=== PATIENT | male | born 1950 | race Caucasian/White ===

== ENCOUNTER → 2023-09-01 | Outpatient (CLI) | payer MEDICARE ==
[2023-09-01 13:20] LABS: African American GFR (CKD) >90 (>60 ml/min/1.73 sqM); Blood Urea Nitrogen 21 mg/dL (9-20); Non-African American GFR(CKD) >90 (>60 ml/min/1.73 sqM)
--- NOTE | 2023-09-03 08:08 | FL ---
EXAMINATION TYPE: FL barium swallow w video DATE OF EXAM: 09/01/2023 COMPARISON: NONE HISTORY: Dysphasia pharyngeal phase TECHNIQUE: Fluoroscopy. FINDINGS: Fluoroscopic guidance was provided for the procedure performed in conjunction with the [facility] pathology department. Please see complete report forthcoming from the Speech Pathology departmen t. Various consistencies from thin liquid to solids were administered. Fluoroscopy time 1 minute 8 seconds. Number of images: 0. No aspiration or penetration was evident. No significant pooling was observed in the vallecula. There was normal propulsion of the bolus. IMPRESSION: 1. Unremarkable modified barium swallow.
== END | disposition home or self-care (01) ==
LOC: RADFLMAIN 10:25
PROVIDERS: ATTEND Otolaryngology
DX: R13.13 Dysphagia, pharyngeal phase (principal); J38.00 Paralysis of vocal cords and larynx, unspecified
CPT/HCPCS: 74230; 82565; 84520